=== PATIENT | male | born 1960 | race Caucasian/White ===

== ENCOUNTER 2021-04-04 14:09 | Emergency (ER) | payer OTHER ==
[~2021-04-04] VITALS: Ht 175.3 cm; Wt 90.7 kg
[2021-04-04 14:16] VITALS: BP 200/116
--- NOTE | 2021-04-04 14:20 | NUR ---
PT TO AWAIT IN LOBBY
--- NOTE | 2021-04-04 14:25 | NUR ---
Patient ambulated to bed 2 with steady gait.
--- NOTE | 2021-04-04 14:33 | NUR ---
61 YO MALE C/O FEELING NAUSEOUS, DENIES ANY VOMITTING. PT STATED WENT TO URGENT CARE BP 193/114, WAS SUGGESTED TO COME TO THE HOSPITAL. PT DENIES ANY HEADACHE OR BLURRY VISION. PMH: HTN DENIES TAKING ANY MEDS
[2021-04-04] MEDS ORDERED: ONDANSETRON 4 MG ODT PO ONE (14:40)
[2021-04-04] MEDS ORDERED: amLODIPine 5 MG TAB PO ONE (14:40)
[2021-04-04 14:49] LABS: BASOPHILS # (AUTO) 0.1 K/uL (0.00-0.22); BASOPHILS % (AUTO) 0.6 % (0.0-2.0); EOSINOPHILS % (AUTO) 0.4 % (0.0-4.0); HEMATOCRIT 48.9 % (36-52); HEMOGLOBIN 16.2 g/dL (12.0-18.0); LYMPHOCYTES # (AUTO) 2.1 K/uL (2.0-11.5); LYMPHOCYTES % (AUTO) 24.8 % (20.5-51.1); MEAN CORPUSCULAR HEMOGLOBIN 29 pg (27-31); MEAN CORPUSCULAR HGB CONC 33 g/dL (33-37); MEAN CORPUSCULAR VOLUME 88.2 fL (80-94); MONOCYTES # (AUTO) 0.4 K/uL (0.8-1.0); MONOCYTES % (AUTO) 4.8 % (1.7-9.3); NEUTROPHILS # (AUTO) 5.8 K/uL (1.8-7.7); NEUTROPHILS % (AUTO) 69.4 % (42.2-75.2); PLATELET COUNT (AUTO) 239 K/uL (140-450); RED BLOOD CELL COUNT(AUTO) 5.55 MIL/uL (4.20-6.10); RED CELL DISTRIBUTION WIDTH 14.6 % (11.6-13.7); WHITE BLOOD COUNT (AUTO) 8.4 K/uL (4.8-10.8)
[2021-04-04 15:06] LABS: ALBUMIN 4.5 g/dL (3.4-5.0); ANION GAP 15.7 (8-16); CARBON DIOXIDE 28.2 mmol/L (21-32); CREATININE 0.9 mg/dL (0.6-1.3); POTASSIUM 3.9 mmol/L (3.5-5.1); TOTAL BILIRUBIN 0.5 mg/dL (0.0-1.0)
[2021-04-04] MEDS ORDERED: AMLO-271 PO (15:20)
[2021-04-04] MEDS ORDERED: ONDA-24 SL (15:20)
--- NOTE | 2021-04-04 15:21 | NUR ---
BP TAKEN BEDSIDE. 170/93 AND MD MADE AWARE.
[2021-04-04 15:32] VITALS: BP 178/93
--- NOTE | 2021-04-04 15:33 | NUR ---
Patient discharged with v/s stable. Written and verbal after care instructions given hypertensionand explained. Patient alert, oriented and verbalized understanding of instructions. Ambulatory with steady gait. All questions addressed prior to discharge. ID band removed. Patient advised to follow up with PMD. Rx of zofran 4mg odt sl q8h prn n/v, and amlodipine 5mg po daily for 30days given. Patient educated on indication of medication including possible reaction and side effects. Opportunity to ask questions provided and answered.
== END 2021-04-04 15:33 | disposition home or self-care (01) ==
LOC: MED 14:09
DX: I10 Essential (primary) hypertension (principal); Z85.46 Personal history of malignant neoplasm of prostate
CPT/HCPCS: 36415; 80053; 84484; 85025; 93005; 99284; Q0162